=== PATIENT | female | born 1950 | race Caucasian/White ===

== ENCOUNTER 2016-12-21 12:23 | Emergency (ER) | payer MEDICARE, OTHER ==
[~2016-12-21] VITALS: Ht 154.9 cm; Wt 59.5 kg
[~2016-12-21 12:23] MED LIST: GABA300C16 PO
[2016-12-21 12:25] VITALS: Ht 154.9 cm; Wt 59.5 kg
== END 2016-12-21 15:24 | disposition left against medical advice (07) ==
LOC: E/R 12:23
DX: Z53.21 Procedure and treatment not carried out due to patient leaving prior to being seen by health care provider (principal)